=== PATIENT | male | born 1990 | race Caucasian/White ===

== ENCOUNTER 2020-09-23 13:09 | Outpatient (CLI) | payer SELFPAY ==
--- NOTE | 2020-09-23 13:22 | XR_ITS ---
WS: [id number] SCOLIOSIS SURVEY Upright AP and lateral radiographs of the thoracic and lumbar spine are submitted. HISTORY: CHRONIC BACK PAIN, SCOLIOSIS. COMPARISON: 10/31/2014 Standing AP and lateral views of the thoracolumbar spine demonstrate thoracolumbar scoliosis. Morel rods extends from T4 through L2. Rods appear to be intact. No fractures or displacement. LEFT convex thoracic curvature centered at T9-10 of 33 degrees is similar to the prior study. RIGHT convex curvature the lumbar spine centered at L2 of 19 degrees is similar to the prior study al so. XR/XR scoliosis survey 4-5V [id number] IMPRESSION: Thoracolumbar scoliosis as described above. Thoracic and lumbar curvatures have not significantly progressed since 10/31/2014.
== END 2020-09-23 13:10 | disposition home or self-care (01) ==
LOC: RADWPI 13:16
PROVIDERS: PCP Nurse Practitioner Family; Visit Provider Nurse Practitioner Family
DX: M54.9 Dorsalgia, unspecified (principal); Z98.1 Arthrodesis status; M41.9 Scoliosis, unspecified
CPT/HCPCS: 72083

== ENCOUNTER 2020-10-16 08:23 | Outpatient (CLI) | payer SELFPAY ==
--- NOTE | 2020-10-16 09:00 | IR_ITS ---
WS: [id number] MYELOGRAM THORACIC SPINE Fluoroscopic guided thoracic myelogram CLINICAL INFORMATION: DORSALGIA TECHNIQUE: The procedure, including risks, benefits, and complications, were discussed with the patie nt who agreed to proceed. A timeout was performed to confirm correct patient, procedure, and site. Using sterile technique, the patient was prepped and draped in the usual sterile fashion. After admin istration of local anesthesia using 1% preservative-free lidocaine and using fluoroscopic guidance, a 22-gauge spinal needle was advanced into the subarachnoid space at the L3-L4 level. Subsequently 13 cc of Omnipaque 240 was administered into the thecal sac. The needle was removed and hemostasis was a chieved. Subsequently the table was tilted down and contrast flowed freely into the thoracic spine. S pot fluoroscopic images were obtained. FLUOROSCOPIC TIME: 1.[address] myelogram report for additional detail. IR/IR myelogram sp thoracic [id number] IMPRESSION: Uncomplicated thoracic myelogram.
[2020-10-16] MEDS: iohexol 300 mg/mL 50 mL Btl INTRATHECA (09:52)
--- NOTE | 2020-10-16 11:30 | CT_ITS ---
WS: [id number] CT THORACIC SPINE TECHNIQUE: Contrast-enhanced CT of the thoracic spine with coronal and sagittal reformatted images. CLINICAL INFORMATION: M54.9 - Dorsalgia, unspecified COMPARISON: CT myelogram DLP: 1346.[address] scans at [facility] use at least one of these dose optimization techniques: automat ed exposure control; mA and/or kV adjustment per patient size (includes targeted exams where dose is matched to clinical indication); or iterative reconstruction. FINDINGS: FLUOROSCOPIC IMAGES S-shaped lumbar scoliosis appears stable compared to 2016. Extensive thoracolumbar Morle mkiie fix ation extending from T4 through L2. Interconnecting rods appear intact. No significant central canal stenosis. Thoracic scoliosis centered at the T10 level unchanged. Stable postoperative changes bilateral Morel mikie fixation with multilevel pedicle screws extendi ng from T4 through L2. Associated beam Fitzgerald artifact from hardware somewhat limits examination. Si ngle left-sided pedicle screw at the T9 level. S-shaped thoracic scoliosis convex left in the mid and lower thoracic spine and convex right in the lumbar spine. Scoliosis is unchanged since 2016. Thorac ic scoliosis centered at the T10-11 level. Pedicle screws appear well-seated. No evidence of hardware loosening. Pedicle screw positions are unc hanged compared to previous. Interconnecting rods appear intact. No significant spinal canal narrowing. No focal disc protrusion or extrusion. Disc space heights are relatively well-maintained. CT/CT thoracic spine w con [id number] IMPRESSION: 1. S-shaped thoracolumbar scoliosis is unchanged compared to 2016. 2. Stable postoperative changes mikie and pedicle screw fixation extending from T4 through L2. Hardware is unchanged and appears well seated. Interconnecting r ods appear intact. 3. No significant central canal stenosis. 4. No acute compression fractures. Vertebral body heights are well-maintained. 5. No significant disc protrusions or extrusions.
== END 2020-10-16 08:24 | disposition home or self-care (01) ==
LOC: RADWPI 08:24
PROVIDERS: PCP Nurse Practitioner Family; Visit Provider Orthopaedic Surgery
DX: M54.9 Dorsalgia, unspecified (principal)
CPT/HCPCS: 62303; 72129; Q9967

== ENCOUNTER → 2020-11-15 08:58 | Outpatient (BNVA) | payer SELFPAY | PROVIDERS: PCP Nurse Practitioner Family; Visit Provider Orthopaedic Surgery | DX: Z01.812 Encounter for preprocedural laboratory examination (principal) | CPT/HCPCS: 87635 ==

== ENCOUNTER 2020-11-20 07:52 | Day surgery (SDC) | payer SELFPAY ==
[2020-11-19 13:05] VITALS: BMI 29.8
[2020-11-20] VITALS (8 sets, daily range): BP systolic 124–137; BP diastolic 81–91; PULSE 69–88; RESP 16–21; TEMP 36.1–36.7; O2SAT 95–98
[2020-11-20] MEDS: sodium chloride 0.9% 1,000 ML 30 ML IV (08:45)
--- NOTE | 2020-11-20 08:48 | W.PM.OPSUD ---
Surgery/Procedure H&P Update DATE OF PROCEDURE: November 20, 2020 DATE H&P PERFORMED: 10/31/20 H&P UPDATE INFORMATION: I have reviewed H&P completed within last 30 days, I have examined patient prior to procedure and No changes to prior documentation PREOP DIAGNOSIS: thoracic radiculopathy PLANNED PROCEDURE: Operation Date: 11/20/20 09:15 Proposed Procedures p Hardware Removal Thoracic left mikie 71562 m54.16(Left) - Luciano Herrera DO
--- NOTE | 2020-11-20 09:01 | ANES.PREANE2 ---
Pre-Anesthetic Assessment Pre-Anesthetic Assessment: Height/Weight: Height 1.8 m Weight 97.069 kg Temp Pulse Resp BP Pulse Ox 97.5 F L 69 18 135/89 98 11/20/20 08:34 11/20/20 08:34 11/20/20 08:34 11/20/20 08:34 11/20/20 08:34 Preop Diagnosis: thoracic radiculopathy Proposed Procedure: Operation Date: 11/20/20 09:15 Proposed Procedures p Hardware Removal Thoracic left mikie 62865 m54.16(Left) - Luciano Herrera, DO Was Beta Lissett taken within 24 hours: N/A Last intake: Intake Last Liquid Date 11/19/20 Last Liquid Time 18:00 Last Solid Date 11/19/20 Last Solid Time 18:00 Social: Social History: Tobacco and No alcohol Exam: Pre-Anes Outpt Exam: alert, oriented x 3, clear to auscultation bilaterally and regular rate & rhythm Airway: Submandibular: WNL Cervical ROM: WNL MP: 2 Dentition: False Additional comments: Poor dentition Pulmonary: Pulmonary: COPD Metabolic: Metabolic: Morbid obesity Anesthetic Plan: ASA status: 3 Anesthesia: General Risk of > 500 ml blood loss (7ml/kg in children): No PFSH Anesthesia PFSH: Social History Smoking and tobacco status: current some day smoker smokeless tobacco Data Anesthesia Cardiac Studies: No Data to Display
--- NOTE | 2020-11-20 10:33 | PM.OP ---
Operative Report Date of procedure: November 20, 2020 Pre-op Diagnosis: thoracic radiculopathy Procedure Done: Removal of deep hardware from thoracolumbar spine Surgeon: Luciano Herrera Anesthesia: General Estimated blood loss (mL): 10 Condition: stable Disposition: PACU Procedure: 1. Removal of deep hardware from thoracolumbar spine Patient is brought to the operative suite after undergoing anesthesia was placed in the prone position all areas of impingement were well-padded. Patient was then prepped and draped in normal sterile fashion. Skin incision made using the previous skin incision. The left-sided hardware was identified from the upper thoracic spine down into the lumbar spine. 10 screws were identified. And 2 cross-links were identified. The end caps of all the screws were removed all 10 screws. And then the cross-links from both sides were removed. Next attention was brought to the removal of the mikie. Once the rods were removed then attention was brought to remove the screws all 10 screws were removed wounds were then irrigated and wound was closed with oh strata fix 2 oh strata fix and Monocryl was used for skin along with skin glue.
--- NOTE | 2020-11-20 11:06 | SUR.PHASEI ---
PT AWAKES EASILY WITH GOOD RESP NOTED PT COUGHS OCCASIONALLY, MONITOR SR, VSS PT VERBALIZED NO PAIN , NAUSEA, OR COLD, PT TEMP 97 SO WARM BLANKETS TO PT X 2 PT FOLLOWS COMMAND AND MOVES BILAT FEET STRONGLY TO COMMAND, BILAT SCDS ON AND WORKING.
--- NOTE | 2020-11-20 11:13 | SUR.PHASEI ---
PT SLEEPS IF NOT DISTURBED PT C/O OF PAIN IF AWAKENED, PT FACE SCALE 2 , THEN QUICKLY BACK TO SLEEP WARM BLANKETS X 3 TO PT.VSS.
[2020-11-20] MEDS: HYDROcodone-acetaminophen 5-325 mg Tablet 1 TAB PO (11:29)
--- NOTE | 2020-11-20 12:20 | ANE.PACU2 ---
Inpatient post-anesthesia follow up: Airway intact: Yes Vital signs: Temperature 98.1 F Pulse Rate 86 Respiratory Rate 17 Blood Pressure 124/90 Pulse Oximetry 96 Oxygen Delivery Me thod Room Air Oxygen Flow Rate Fraction of Inspir ed Oxygen Hydration adequate: Yes Nausea and vomiting: No Pain level: 3 Mental status: Baseline
[2020-11-20] MEDS: metoclopramide 5 mg/mL SDV 2 mL 10 MG IVP (13:08)
--- NOTE | 2020-11-21 10:38 | PM.MISC ---
Miscellaneous Note Note: wasted 450mg Ketamine with Vijay Uriostegui CRNA
== END 2020-11-20 14:15 | disposition home or self-care (01) ==
PROVIDERS: PCP Nurse Practitioner Family; Visit Provider Orthopaedic Surgery
PROC: (CPT 20680; principal; 2020-11-20 09:15)
DX: M54.14 Radiculopathy, thoracic region (principal); J44.9 Chronic obstructive pulmonary disease, unspecified; E66.01 Morbid (severe) obesity due to excess calories; Z68.29 Body mass index [BMI] 29.0-29.9, adult; F17.290 Nicotine dependence, other tobacco product, uncomplicated
CPT/HCPCS: 20680; 12345; 96374; J0690; J1100; J1170; J2405; J2704; J2765; J3010; J3490; J7030

== ENCOUNTER → 2021-02-13 08:31 | Outpatient (BNVA) | payer OTHER, SELFPAY | PROVIDERS: PCP Nurse Practitioner Family; Visit Provider Orthopaedic Surgery | DX: Z48.89 Encounter for other specified surgical aftercare (principal); M54.9 Dorsalgia, unspecified | CPT/HCPCS: 72072 ==

== ENCOUNTER → 2021-02-21 08:33 | Outpatient (BNVA) | payer OTHER, SELFPAY | PROVIDERS: PCP Nurse Practitioner Family; Referring Provider Orthopaedic Surgery; Visit Provider Anesthesiology Pain Medicine | DX: M79.18 Myalgia, other site (principal); M54.9 Dorsalgia, unspecified; M41.9 Scoliosis, unspecified | CPT/HCPCS: 20553; 99205; J1030; J3490 ==

== ENCOUNTER → 2021-04-03 10:11 | Outpatient (BNVA) | payer OTHER, SELFPAY | PROVIDERS: PCP Nurse Practitioner Family; Visit Provider Orthopaedic Surgery | DX: Z48.89 Encounter for other specified surgical aftercare (principal); M54.6 Pain in thoracic spine; M41.9 Scoliosis, unspecified | CPT/HCPCS: 72070 ==

== ENCOUNTER 2021-07-15 14:01 | Outpatient (CLI) | payer OTHER, SELFPAY ==
[2021-07-15 14:28] LABS: Red Blood Count Semen Rare /hpf; Viscosity Semen High Viscosity; White Blood Count Semen 0-4 /hpf
== END 2021-07-15 14:02 | disposition home or self-care (01) ==
LOC: RAD 14:09
PROVIDERS: PCP Nurse Practitioner Family; Visit Provider Obstetrics & Gynecology
DX: N46.9 Male infertility, unspecified (principal)
CPT/HCPCS: 89320

== ENCOUNTER → 2022-04-28 15:35 | Outpatient (BNVA) | payer OTHER, SELFPAY | PROVIDERS: PCP Nurse Practitioner Family; Referring Provider Obstetrics & Gynecology; Visit Provider Urology | DX: N46.01 Organic azoospermia (principal) | CPT/HCPCS: 83001; 83002; 84403 ==

== ENCOUNTER → 2022-09-15 08:04 | Outpatient (BNVA) | payer OTHER, SELFPAY | PROVIDERS: PCP Nurse Practitioner Family; Visit Provider Physician Assistant | DX: M51.36 Other intervertebral disc degeneration, lumbar region (principal); M85.88 Other specified disorders of bone density and structure, other site; M41.55 Other secondary scoliosis, thoracolumbar region; Z98.1 Arthrodesis status | CPT/HCPCS: 72080; 72110 ==

== ENCOUNTER 2023-04-03 20:39 | Emergency (ER) | payer OTHER, SELFPAY ==
[2023-04-03 20:43] VITALS: BP 134/88; PULSE 73; RESP 16; TEMP 36.7; O2SAT 98
--- NOTE | 2023-04-03 20:54 | USR_ITS ---
PROCEDURE INFORMATION: Exam: US Abdomen, Limited; Right Upper Quadrant Exam date and time: 04/03/2023 9:34 PM Age: 32 years old Clinical indication: Abdominal pain; Acute; Additional info: Ruq pain TECHNIQUE: Imaging protocol: Real time ultrasound of the abdomen with image documentation. Limited exam focused on the right upper quadrant. COMPARISON: CT thoracic spine w con [id number] 10/16/2020 9:49 AM FINDINGS: Liver: Normal. No masses. Gallbladder: Diffuse posterior acoustic shadowing of the gallbladder suggestive of gallstone filled gallbladder. There is no gallbladder wall thickening. Common bile duct measures between 5 and 6 mm within normal limits. Biliary ducts: Normal. No stones. No dilation. Pancreas: Visualized pancreas is unremarkable. Right kidney: Right kidney measures 9.8 cm in length. No mass. No hydronephrosis. US/US gall bladder [id number] IMPRESSION: Cholelithiasis without sonographic findings of acute cholecystitis.
--- NOTE | 2023-04-03 21:07 | ED_ITS ---
HPI - Abdominal Pain General: Chief Complaint: Abdominal Pain Stated Complaint: n/v, abd pain Time Seen by Provider: 04/03/23 20:51 Source: patient Mode of arrival: ambulatory Limitations: no limitations History of Present Illness: 32-year-old male states he ate [facility] tonight started having epigastric and right upper quadrant pain that was sharp in nature is happened a few hours ago he states he had nausea vomiting states pain is currently a 6 out of 10 he denies any worsening or improving factors currently denies any fevers. Associated Symptoms: Reports nausea and vomiting; Denies chills, diarrhea, dysuria and fever(s) Review of Systems Const: Denies: fever(s), chills, body aches or change in appetite ENMT: Denies: throat pain or dental pain Card: Denies: chest pain Resp: Denies: dyspnea GI: Reports: abdominal pain, nausea and vomiting; Denies: diarrhea : Denies: dysuria Musc: Denies: neck pain or back pain Skin/Breast: Denies: rash Neuro: Denies: headache(s) PFSH ED PFSH: Family History Mother Diabetes Social History Smoking and tobacco status: current some day smoker Alcohol intake: never Marital status: Current occupational status: employed Current occupation: party demonstrator Physical Exam Const: COMMON NORMALS: no acute distress, patient oriented x3 and healthy appearing HENMT: COMMON NORMALS: normocephalic and atraumatic HEAD & SCALP: normocephalic and atraumatic Neck/C-Spine: COMMON NORMALS: full ROM and supple Chest: COMMONS NORMALS: normal inspection of the chest and normal palpation of entire chest wall Resp: COMMON NORMALS: normal respiratory effort, No retractions, No use of accessory muscles and clear to auscultation bilaterally AUSCULTATION: clear to auscultation bilaterally Cardio: COMMON NORMALS: regular rate, regular rhythm and No murmurs present (Cardio) RATE: regular rate RHYTHM: regular rhythm GI: COMMON NORMALS: Normal to inspection, nondistended, normoactive bowel sounds present, Soft to palpation and no masses PALPATION: Yes Soft to palpation OTHER: epigastric tenderness Extremity: COMMON NORMALS: normal to inspection and full ROM Neuro: COMMON NORMALS: patient oriented x3, moves all extremities and no focal motor deficits Psych: COMMON NORMALS: mental status grossly normal, Normal thought process present and cooperative THOUGHT PROCESS: Normal thought process present Skin: COMMON NORMALS: no rashes or lesions noted and no wounds GENERAL SKIN EXAM: no rashes or lesions noted Course Vital Signs: Vital signs: Vital Signs Temperature 98.0 F 04/03/23 20:43 Pulse Rate 62 04/03/23 21:10 Respiratory Rate 16 04/03/23 21:10 Blood Pressure 133/84 04/03/23 21:10 Pulse Oximetry 100 04/03/23 21:10 Oxygen Delivery Me thod Room Air 04/03/23 20:43 MDM - Abdominal Pain Medical Decision Making 32-year-old male is here with abdominal pain is likely biliary colic versus gastritis was after he ate [employer] he has no signs of cholecystitis white counts normal ultrasound did show gallstones but no gallbladder wall thickening his pain is much proved here we will prescribe him pain meds we will get him follow- up with a surgeon he is return if worsening he understands agrees to plan. Medical Records I reviewed the patient's medical records. Lab Data I reviewed the patient's lab results. 04/03/23 21:07 04/03/23 21:07 Labs/Radiology: Radiology Impressions Gallbladder Ultrasound 04/03/23 20:54 IMPRESSION: Cholelithiasis without sonographic findings of acute cholecystitis. Laboratory Results WBC 8.2 10^3/uL (4.0-10.0) 04/03/23 21:07 RBC 5.34 10^6/uL (4.1-5.3) H 04/03/23 21:07 Hgb 15.2 g/dL (11.7-16.6) 04/03/23 21:07 Hct 47.5 % (42.0-52.0) 04/03/23 21:07 MCV 89.0 fl (80-94) 04/03/23 21:07 MCH 28.5 pg (28.0-34.0) 04/03/23 21:07 MCHC 32.0 g/dL (30.0-36.0) 04/03/23 21:07 RDW 12.9 % (12.1-15.1) 04/03/23 21:07 Plt Count 224 10^3/cmm (130-400) 04/03/23 21:07 MPV 9.2 fL (7.4-10.4) 04/03/23 21:07 Neut % (Auto) 61.7 % 04/03/23 21:07 Lymph % (Auto) 30.9 % 04/03/23 21:07 Gibson % (Auto) 5.0 % 04/03/23 21:07 Eos % (Auto) 1.9 % 04/03/23 21:07 Baso % (Auto) 0.4 % 04/03/23 21:07 Neut # (Auto) 5.07 10^3/uL (1.8-7.7) 04/03/23 21:07 Lymph # (Auto) 2.5 10^3/uL (0.8-4.8) 04/03/23 21:07 Gibson # (Auto) 0.4 10^3/uL (0.2-0.9) 04/03/23 21:07 Eos # (Auto) 0.2 10^3/uL (0.0-0.8) 04/03/23 21:07 Baso # (Auto) 0.0 10^3/uL (0.0-0.1) 04/03/23 21:07 Nucleated RBC % (auto) 0 % 04/03/23 21:07 Nucleated RBCs # 0.0 /100WBC 04/03/23 21:07 Sodium 133 mmol/L (136-145) L 04/03/23 21:07 Potassium 3.8 mmol/L (3.5-5.1) 04/03/23 21:07 Chloride 97 mmol/L (98-107) L 04/03/23 21:07 Carbon Dioxide 27 mmol/L (22-29) 04/03/23 21:07 Anion Gap 12.8 (5-19) 04/03/23 21:07 BUN 10 mg/dL (6-20) 04/03/23 21:07 Creatinine 1.0 mg/dL (0.7-1.2) 04/03/23 21:07 GFR Calculation 85.5 mL/min (90-130) L 04/03/23 21:07 Glucose 93 mg/dL (65-115) 04/03/23 21:07 Calculated Osmolality 275 mOsm/kg (285-295) L 04/03/23 21:07 Calcium 8.9 mg/dL (8.5-10.5) 04/03/23 21:07 Total Bilirubin 0.5 mg/dL (0.15-1.2) 04/03/23 21:07 AST 54 U/L (0-40) H 04/03/23 21:07 ALT 44 U/L (0-41) H 04/03/23 21:07 Alkaline Phosphatase 102 U/L (40-130) 04/03/23 21:07 Total Protein 7.3 g/dL (6.6-8.7) 04/03/23 21:07 Albumin 4.8 g/dL (3.5-5.2) 04/03/23 21:07 Globulin 2.5 g/dL (1.3-4.6) 04/03/23 21:07 Lipase 30 U/L (13-60) 04/03/23 21:07 Discharge Plan Discharge Patient Disposition: Home Clinical Impression: Abdominal pain, Cholelithiasis Condition: Stable Prescriptions: New hydrocodone-acetaminophen 5-325 mg tablet 1 tab PO Q6H PRN (Reason: pain) Qty: 14 0RF ondansetron 4 mg tablet,disintegrating 4 mg PO Q6H PRN (Reason: nausea and vomiting) Qty: 14 0RF No Action meloxicam 15 mg tablet 15 mg PO DAILY Qty: 30 0RF baclofen 20 mg tablet 20 mg PO TID Qty: 90 0RF Discharge Orders: Discharge ED (Routine); Ordered 04/03/23 Ordered By: Surinder Chin Referrals: Ronaldo Bowman DO [Physician] - 1-3 days Wanda Berman NP [Primary Care Provider] - Discharge Diet: Advance as tolerated Discharge Activity: Resume usual activity Patient Instructions: Gallstones (ED), Abdominal Pain (ED), Opioid Safety Coding Level of Care Code ED Licensed Marriage And Family Therapist for Rohan Shields
[2023-04-03 21:10] VITALS: BP 133/84; PULSE 62; RESP 16; O2SAT 100
[2023-04-03] MEDS: sodium chloride 0.9% 1,000 ML 999 ML IV (21:14)
[2023-04-03] MEDS: ondansetron 2 mg/ML SDV 2 mL 4 MG IVP ×2 (21:14→22:25)
[2023-04-03 21:28] LABS: Basophils % 0.4 %; Eosinophils # 0.2 10^3/uL (0.0-0.8); Eosinophils % 1.9 %; Hematocrit 47.5 % (42.0-52.0); Hemoglobin 15.2 g/dL (11.7-16.6); Lymphocytes # 2.5 10^3/uL (0.8-4.8); Lymphocytes % 30.9 %; Mean Corpuscular Hemoglobin 28.5 pg (28.0-34.0); Mean Platelet Volume 9.2 fL (7.4-10.4); Monocytes # 0.4 10^3/uL (0.2-0.9); Neutrophils # 5.07 10^3/uL (1.8-7.7); Neutrophils % 61.7 %; Nucleated Red Blood Cells % 0 %; Platelet Count 224 10^3/cmm (130-400); Red Blood Count 5.34 10^6/uL (4.1-5.3); Red Cell Distribution Width 12.9 % (12.1-15.1); White Blood Count 8.2 10^3/uL (4.0-10.0)
[2023-04-03 21:35] LABS: Alanine Aminotransferase 44 U/L (0-41); Albumin Level 4.8 g/dL (3.5-5.2); Alkaline Phosphatase 102 U/L (40-130); Anion Gap 12.8 (5-19); Aspartate Amino Transferase 54 U/L (0-40); Blood Urea Nitrogen 10 mg/dL (6-20); Calcium 8.9 mg/dL (8.5-10.5); Carbon Dioxide 27 mmol/L (22-29); Chloride 97 mmol/L (98-107); Globulin 2.5 g/dL (1.3-4.6); Glomerular Filtration Rate 85.5 mL/min (90-130); Glucose 93 mg/dL (65-115); Lipase 30 U/L (13-60); Osmolality Calculated 275 mOsm/kg (285-295); Potassium 3.8 mmol/L (3.5-5.1); Sodium 133 mmol/L (136-145); Total Bilirubin 0.5 mg/dL (0.15-1.2); Total Protein 7.3 g/dL (6.6-8.7)
[2023-04-03] MEDS: morphine 4 mg/mL SDV 1 mL IVP (22:03)
[2023-04-03 22:21] LABS: Add Urine Microscopic? YES; Bilirubin Urine Neg (Negative); Blood Urine Neg (Negative); Glucose Urine UA Norm (Normal); Ketones Urine Negative (Negative); Leukocyte Esterase Urine Negative (Negative); Nitrate Urine Negative (Negative); Protein Urine Neg (Negative); Specific Gravity, Urine 1.015 (1.005-1.030); Urine Appearance Cloudy (CLEAR); Urine Color Yellow (Yellow); Urobilinogen Urine Norm (Negative); pH Urine 7 (5-7)
[2023-04-03 22:22] LABS: Amorphous Sediment Urine 2+ /hpf; Bacteria Urine 1+ /hpf
--- NOTE | 2023-04-05 09:00 | DCPLANNER ---
Addendum entered by Clary Guillaume 05/20/23 07:15: Patient had a follow up appointment scheduled with general surgery - patient did attend appointment. Addendum entered by Clary Guillaume 04/08/23 09:11: Patient has a follow up appointment scheduled for Thursday, May 04, 2023 at 9:[address] Bowman at general surgery. Original Note: player manager had message to schedule a follow up appointment for patient with general surgery. player manager sent patients to the front office staff at general surgery. Patients information will be printed and reviewed. Clinic will call patient with appointment information.
== END 2023-04-03 22:28 | disposition home or self-care (01) ==
PROVIDERS: Emergency Provider Emergency Medicine; PCP Nurse Practitioner Family
DX: K80.20 Calculus of gallbladder without cholecystitis without obstruction (principal); F17.210 Nicotine dependence, cigarettes, uncomplicated
CPT/HCPCS: 76705; 80053; 81001; 83690; 85025; 96361; 96374; 96375; 96376; 99285; J2270; J2405; J7030

== ENCOUNTER 2023-05-05 08:53 | Day surgery (SDC) | payer OTHER, SELFPAY ==
[2023-05-04 10:32] VITALS: BMI 28.3
[2023-05-05 09:04] VITALS: BP 124/79; PULSE 55; RESP 18; TEMP 36.4; O2SAT 98
[2023-05-05] MEDS: sodium chloride 0.9% 1,000 ML 30 ML IV (09:20)
--- NOTE | 2023-05-05 10:05 | ANES.PREANE2 ---
Pre-Anesthetic Assessment Height/Weight: Height 1.83 m Weight 94.801 kg Temp Pulse Resp BP Pulse Ox O2 Del Method 97.5 F L 55 L 18 124/79 98 Room Air 05/05/23 09:04 05/05/23 09:04 05/05/23 09:04 05/05/23 09:04 05/05/23 09:04 05/05/23 09:04 Operation Date: 05/05/23 09:45 Proposed Procedures p EGD 17742,K21.9,K80.20(Not Applicable) - Ronaldo Bowman DO Familial anesthetic complications: None Was Beta Lissett taken within 24 hours: N/A Was Clonidine taken within 24 hours: N/A Last intake: Intake Last Liquid Date 05/04/23 Last Liquid Time 16:00 Last Solid Date 05/04/23 Last Solid Time 16:00 Social No alcohol and No tobacco Airway Mallampati: Class I Dentition: other (no teeth) GI Gastroesophageal Reflux Disease Anesthetic Plan ASA status: 2 Anesthesia: MAC Risk of > 500 ml blood loss (7ml/kg in children): No Medications/Allergies Home Medications Medication Instructions Recorded Confirmed Last Taken Type ondansetron 4 mg disintegrating 4 mg PO Q6H PRN nausea and 04/03/23 05/05/23 05/04/23 Rx tablet vomiting #14 tabs pantoprazole 40 mg tablet,delayed 40 mg PO BID 6 weeks #84 tabs 05/04/23 05/05/23 05/04/23 Rx release (Protonix) Allergies Allergy/AdvReac Type Severity Reaction Status Date / Time No Known Allergies Allergy Verified 05/05/23 09:04 Current Medications Generic Name Dose Route Start Last Admin Trade Name Freq PRN Reason Stop Dose Admin Sodium Chloride 1,000 mls @ 30 mls/hr 05/05/23 09:15 05/05/23 09:20 Sodium Chloride 0.9% IV 05/06/23 09:14 30 mls/hr .Q24H JACLYN Administration PFSH Anesthesia Medical History (Updated 05/04/23 @ 09:46 by Ronaldo Bowman DO) Cholelithiasis Low sperm motility Family History Mother Diabetes Social History Smoking and tobacco status: current some day smoker Alcohol intake: never Marital status: Current occupational status: employed Current occupation: maintenance parts technician Data Anesthesia Cardiac Studies: No Data to Display
--- NOTE | 2023-05-05 10:18 | W.PM.OPSUD ---
Surgery/Procedure H&P Update DATE OF PROCEDURE: May 05, 2023 DATE H&P PERFORMED: 05/04/23 H&P UPDATE INFORMATION: I have reviewed H&P completed within last 30 days, I have examined patient prior to procedure and No changes to prior documentation PLANNED PROCEDURE: Operation Date: 05/05/23 09:45 Proposed Procedures p EGD 15727,K21.9,K80.20(Not Applicable) - Ronaldo Bowman, DO
[2023-05-05 10:59] VITALS: BP 107/73; PULSE 59; RESP 16; TEMP 36.2; O2SAT 93
--- NOTE | 2023-05-05 11:00 | ANE.PACU2 ---
Inpatient post-anesthesia follow up: Airway intact: Yes Vital signs: Temperature 97.2 F Pulse Rate 67 Respiratory Rate 16 Blood Pressure 107/77 Pulse Oximetry 97 Oxygen Delivery Me thod Room Air Oxygen Flow Rate Fraction of Inspir ed Oxygen Hydration adequate: Yes Nausea and vomiting: Yes Pain level: 1 Mental status: Baseline
[2023-05-05 11:09] VITALS: BP 107/77; PULSE 67; RESP 16; O2SAT 97
== END 2023-05-05 11:30 | disposition home or self-care (01) ==
PROVIDERS: PCP Nurse Practitioner Family; Visit Provider Surgery
PROC: 0DJ08ZZ Inspection of Upper Intestinal Tract, Via Natural or Artificial Opening Endoscopic (ICD-10-PCS; CPT 43235; principal; 2023-05-05 09:45)
DX: K29.50 Unspecified chronic gastritis without bleeding (principal); B96.81 Helicobacter pylori [H. pylori] as the cause of diseases classified elsewhere; K21.9 Gastro-esophageal reflux disease without esophagitis; F17.200 Nicotine dependence, unspecified, uncomplicated; K44.9 Diaphragmatic hernia without obstruction or gangrene
CPT/HCPCS: 43239; 88305; J2704; J7030

== ENCOUNTER 2023-07-12 08:11 | Day surgery (SDC) | payer OTHER, SELFPAY ==
[2023-07-12] VITALS (11 sets, daily range): BP systolic 115–145; BP diastolic 79–99; PULSE 54–85; RESP 15–18; TEMP 36.2–36.8; O2SAT 96–100
[2023-07-12] MEDS: sodium chloride 0.9% 1,000 ML 30 ML IV (08:25)
--- NOTE | 2023-07-12 08:58 | P.HP_ITS ---
Providers/Chief Complaint Primary Care Provider: TERRI Jones Chief Complaint: 25920 K80.20 History of Present Illness Palmer Soria is a 32 year old male Review of Systems General: Reports: 10 or more systems reviewed and unremarkable except in HPI and below Medications/Allergies Home Medications Medication Instructions Recorded Confirmed Last Taken Type dimenhydrinate 50 mg tablet 50 mg PO Q8H PRN Abdominal 06/08/23 07/12/23 07/10/23 History (Dramamine) Discomfort Allergies Allergy/AdvReac Type Severity Reaction Status Date / Time hydrocodone Allergy ADR-Itching Verified 07/12/23 08:21 PFSH Acute PFSH: Medical History (Updated 06/08/23 @ 13:50 by Ronaldo Bowman DO) Cholelithiasis Low sperm motility Scoliosis Surgical History History of lumbar surgery Family History Mother Diabetes Social History Smoking and tobacco status: current some day smoker Alcohol intake: never Marital status: Current occupational status: employed Current occupation: registered phlebotomist part time Vitals/I&O/Wt Last Vital Signs Temp 98.2 F 07/12/23 08:35 Pulse 54 L 07/12/23 08:35 Resp 18 07/12/23 08:35 BP 127/86 07/12/23 08:35 Pulse Ox 99 07/12/23 08:35 O2 Del Method Room Air 07/12/23 08:24 A&P Assessment and plan (1) Symptomatic cholelithiasis: Plan Laparoscopic cholecystectomy Attestations Medical Necessity Statement*: Home Coding Level of Care Code Acute Code for g Fwd Diagnoses Symptomatic cholelithiasis K80.20
--- NOTE | 2023-07-12 09:02 | P.ANESASSM_ITS ---
Pre-Anesthetic Assessment Height/Weight: Height 1.83 m Weight 94.347 kg Temp Pulse Resp BP Pulse Ox O2 Del Method 98.2 F 54 L 18 127/86 99 Room Air 07/12/23 08:35 07/12/23 08:35 07/12/23 08:35 07/12/23 08:35 07/12/23 08:35 07/12/23 08:24 Operation Date: 07/12/23 09:55 Proposed Procedures p : [id number] - lap rachel k80.20(Not Applicable) - Ronaldo Bowman DO Was Beta Lissett taken within 24 hours: N/A Was Clonidine taken within 24 hours: N/A Last intake: Intake Last Liquid Date 07/11/23 Last Liquid Time 18:30 Last Solid Date 07/11/23 Last Solid Time 18:30 Social No tobacco Exam alert, oriented x 3, clear to auscultation bilaterally and regular rate & rhythm Airway Submandibular: within normal limits Cervical ROM: within normal limits Mallampati: Class II Dentition: loose and false Comments: Comments: Upper denture @ home. Some lower teeth missing or broken. History/ROS No significant history except as noted and No significant complaints Pulmonary None reported CV/HEM None reported None reported Hepatic None reported GI Gastroesophageal Reflux Disease Metabolic None reported Musc/skel Spine fusion Neuropsych None reported Anesthetic Plan ASA status: 2 Anesthesia: General Risk of > 500 ml blood loss (7ml/kg in children): No Medications/Allergies Home Medications Medication Instructions Recorded Confirmed Last Taken Type dimenhydrinate 50 mg tablet 50 mg PO Q8H PRN Abdominal 06/08/23 07/12/23 07/10/23 History (Dramamine) Discomfort Allergies Allergy/AdvReac Type Severity Reaction Status Date / Time hydrocodone Allergy ADR-Itching Verified 07/12/23 08:21 Current Medications Generic Name Dose Route Start Last Admin Trade Name Freq PRN Reason Stop Dose Admin Sodium Chloride 1,000 mls @ 30 mls/hr 07/12/23 08:30 07/12/23 08:25 Sodium Chloride 0.9% IV 07/13/23 08:29 30 mls/hr .Q24H JACLYN Administration PFSH Anesthesia Medical History (Updated 06/08/23 @ 13:50 by Ronaldo Bowman DO) Cholelithiasis Low sperm motility Scoliosis Surgical History History of lumbar surgery Family History Mother Diabetes Social History Smoking and tobacco status: current some day smoker Alcohol intake: never Marital status: Current occupational status: employed Current occupation: education department chair Data Anesthesia Cardiac Studies: No Data to Display
[2023-07-12] MEDS: ceFAZolin 2,000 MG in sodium chloride 0.9% (plus) 50 ML 100 MG IV (09:04)
[2023-07-12] MEDS: lidocaine-epi 2% 20 mL INJ 7 ML INJECTION (10:00)
--- NOTE | 2023-07-12 10:32 | P.OP_ITS ---
Operative Report Date of procedure: July 12, 2023 Pre-op diagnosis: Symptomatic cholelithiasis Post-op diagnosis: same Procedure done: Laparoscopic cholecystectomy Implants: Surgicel Specimens removed/disposition: Gallbladder Surgeon: Ronaldo Bowman DO Anesthesia: General Estimated blood loss (mL): 5 Complications: None apparent Brief History: This is a very pleasant 32-year-old gentleman who was diagnosed with symptomatic cholelithiasis. Laparoscopic cholecystectomy is indicated. The risk and benefits were explained and documented. Procedure: Patient was wheeled into the operative room and placed on the OR table in a supine position. Abdomen was inspected prepped and draped in usual sterile fashion. Time-out was performed and all present were in agreement. A 15 blade scalp was used to make a stab incision in the left upper quadrant and intra-a bdominal insufflation was achieved using a Veress needle. After localizing the tissue incisions were made and a 5 millimeter trocar was placed into the umbilicus as well as 2 in the right upper quadrant. A 12 millimeter trocar was placed in the epigastrium. Gallbladder was grasped and elevated. Gallbladder was very small and the lumen consisted entirely of stones. Gallbladder was hard to grasp. The triangle of Calot was carefully dissected using blunt dissection and electrocautery until the triangle of Calot clearly identified. The cystic duct was clipped proximally and double clipped distally. The duct was then ligated proximally. The cystic artery was doubly clipped and ligated. The gallbladder was then removed from the liver bed using electrocautery. The gallbladder was removed from the abdomen using an Endo-Catch bag through the epigastric incision. The liver bed was inspected and no bleeding was seen. The abdomen was irrigated and suctioned. All ports removed. Skin was washed and dried. Incisions were closed with 4-0 Monocryl in a subcuticular interrupted fashion. Skin glue was applied. Patient tolerated the procedure well.
[2023-07-12] MEDS: ondansetron 2 mg/ML SDV 2 mL 4 MG IVP (11:03)
[2023-07-12] MEDS: oxyCODONE-APAP 5-325 mg Tablet 1 TAB PO (11:34)
--- NOTE | 2023-07-12 17:16 | ANE.PACU2 ---
Inpatient post-anesthesia follow up: Airway intact: Yes Vital signs: Temperature 97.2 F Pulse Rate 64 Respiratory Rate 18 Blood Pressure 115/82 Pulse Oximetry 98 Oxygen Delivery Me thod Room Air Oxygen Flow Rate Fraction of Inspir ed Oxygen Hydration adequate: Yes Nausea and vomiting: No Pain level: 3 Mental status: Baseline
== END 2023-07-12 12:15 | disposition home or self-care (01) ==
PROVIDERS: PCP Nurse Practitioner Family; Visit Provider Surgery
PROC: 0FT44ZZ Resection of Gallbladder, Percutaneous Endoscopic Approach (ICD-10-PCS; CPT 47562; principal; 2023-07-12 09:45)
DX: K80.10 Calculus of gallbladder with chronic cholecystitis without obstruction (principal); K21.9 Gastro-esophageal reflux disease without esophagitis
CPT/HCPCS: 47562; 88304; J0690; J1100; J1170; J2405; J2704; J3010; J3490; J7030

== ENCOUNTER → 2024-11-14 08:45 | Outpatient (BNVA) | payer OTHER, SELFPAY | PROVIDERS: PCP Nurse Practitioner Family; Visit Provider Orthopaedic Surgery | DX: M54.9 Dorsalgia, unspecified (principal) | CPT/HCPCS: 72110 ==

== ENCOUNTER 2024-11-23 11:30 | Outpatient (RCR) | payer OTHER, SELFPAY | END 2024-11-24 23:59 | disposition home or self-care (01) | LOC: SPT 11:30 | PROVIDERS: Visit Provider Orthopaedic Surgery | DX: M54.9 Dorsalgia, unspecified (principal); G89.29 Other chronic pain | CPT/HCPCS: 97161 ==

== ENCOUNTER 2024-11-25 06:30 | Outpatient (RCR) | payer OTHER, SELFPAY | END 2024-12-22 23:59 | disposition home or self-care (01) | LOC: SPT 06:30 | PROVIDERS: Visit Provider Orthopaedic Surgery | DX: M54.9 Dorsalgia, unspecified (principal); G89.29 Other chronic pain | CPT/HCPCS: 97110 ==